=== PATIENT | female | born 1930 | race Caucasian/White ===

== ENCOUNTER → 2016-09-28 | Outpatient (CLI) | payer OTHER | LOC: MMPC 09:00 | PROVIDERS: ATTEND Family Medicine | DX: H54.52 Low vision, left eye, normal vision right eye (principal); H61.23 Impacted cerumen, bilateral; L91.8 Other hypertrophic disorders of the skin | CPT/HCPCS: 99213; G0463 ==

== ENCOUNTER → 2017-01-21 | Outpatient (CLI) | payer OTHER | LOC: MMPC 09:00 | PROVIDERS: ATTEND Family Medicine | DX: M54.2 Cervicalgia (principal); M54.5 Low back pain; M25.561 Pain in right knee; M25.562 Pain in left knee | CPT/HCPCS: 99214; G0463 ==

== ENCOUNTER → 2017-03-19 | Outpatient (CLI) | payer OTHER | LOC: MMPC 09:00 | PROVIDERS: ATTEND Family Medicine | DX: M54.2 Cervicalgia (principal); H61.23 Impacted cerumen, bilateral | CPT/HCPCS: 99213; G0463 ==

== ENCOUNTER 2018-06-10 09:40 | Inpatient (IN) ==
[2018-06-10] MEDS ORDERED: CloNIDine Tab 0.1 MG TABLET PO ONE (09:50)
--- NOTE | 2018-06-10 09:57 | PDOC ---
Neuro Symptoms / Deficit HPI - General Chief Complaint: Neurological Complaints Stated Complaint: POSSIBLE STROKE Date Seen by Provider: 06/10/18 Time Seen by Provider: 09:45 Source: POSITIVE: Patient, EMS Exam Limitations: POSITIVE: Clinical condition Nurse's Notes Reviewed & Considered: Yes - History of Present Illness Initial Comments: This is a well-developed, well-nourished, 88-year-old female, with stroke symptoms. Patient was brought in by EMS with right-sided facial droop, dysarthria, and aphasia. Patient states she went to bed at 10 PM last night normal, awoke at 03 100 with symptoms. She was found by staff to be sitting in the lobby of the home she lives and with the above noted symptoms. She was found to have blood pressure of 205/98 and a blood sugar of 87. She does not presently have blood pressure medication listed on her medical record. Due to the patient's dysarthria further review of systems is very difficult to obtain. Body Location Affected: REPORTS: Face Timing: REPORTS: Gradual Duration: <24 hours Severity: Severe Character of Deficit(s): REPORTS: Right, Facial, Impaired Speech, Impaired Swallowing Associated Symptoms: DENIES: Fever, Chills, Sweating, Chest Pain, Neck Pain, Back Pain, Headache, Fainting, Seizure, Altered Mental Status, Disoriented, Confused, Agitated, Trouble Concentrating, Trouble Thinking, Decreased Responsiveness, Unresponsive, Other Usual Ability to Walk/Stand: REPORTS: Walks w/o Assistance Usual Cognition: REPORTS: Alert & Oriented x3 Similar Symptoms Previously: No Recently seen/treated/hospitalized: No Any Prior Injuries Related to Current Complaint?: No - Patient Home Medications Home Medications: Home Medications Ascorbic Acid [Vitamin C] 500 mg PO DAILY 04/11/12 Aspirin 1 tab ORAL QD tab 04/11/12 B-Arrizhw-Aeydjnn B-12 1 ea PO DAILY 04/11/12 Ca Cmb No.1/Vit D3/B-6/FA/B12 [Vitamin D3 1,000 Unit Tablet] 1 ea PO DAILY 04/11 Calcium Carbonate/Vitamin D3 [Calcium 600 + Vit D Caplet] 1 ea PO DAILY Multivitamin [Daily Vitamin] 1 ea PO DAILY 04/11/12 Chlorel/Chloroph/D3/B2/FA/Iron [Chlorella Caps] 15 ea PO DAILY 04/18/12 [place] Q Plus 2 cap PO BID #90 cap 07/18/12 simvastatin 10 mg tablet 10 mg PO DAILY #90 tab 06/22/17 ropinirole 1 mg tablet 1 mg PO BID #60 tab 04/11/18 - Patient Allergies Allergies/Adverse Reactions: Allergies 3 Allergy/AdvReac Type Severity Reaction Status Date / Time Sulfa (Sulfonamide Allergy Intermediate RASH Verified 02/10/18 13:19 Antibiotics) [Sulfa(Sulfonamide Antibiotics)] Past Medical History - heen HEENT History: Hard of Hearing, Other (please comment) Additional HEENT History: PARTIAL UPPER PLATE Cardiovascular History: CAD, Hyperlipidemia Additional Cardiovasular History: CAROTID STENOSIS/ Respiratory History: Shortness of Breath, Sleep Apnea Gastrointestinal History: GERD, Peptic Ulcer Disease Genitourinary History: Denies History Endocrine History: Denies History Musculoskeletal History: Osteoporosis Neurological History: Denies History Blood Disorders: Denies History Psychiatric History: Denies History Cancer History: Denies History In Past Year Been Physically Harmed or Verbally Threatened: No History of MDRO: Unknown Tobacco Use: Unknown If Ever Smoked Alcohol Use: None In the Past 12 Months, Have Used or Abuse Any Substance: None ROS - Limitations ROS Limitations: Clinical Condition (Patient's dysarthria and aphasia make it difficult to obtain further review of systems.) Neuro Symptoms / Deficit Exam - General Appearance General Appearance: POSITIVE: Alert, Mild Distress, Anxious - HEENT HEENT: POSITIVE: Head Inspection Nml, Eyes Inspection Nml, Ears Inspection Nml, Nose Inspection Nml, Oral/Dental Inspect. Nml, Pharynx Inspect. Nml, PERRL, EOMI , Other (Right sided facial droop) - Pupil Size Pupil Size: 5 mm: Bilateral - Neuro / Psych Higher Functions: POSITIVE: Oriented to Person, Oriented to Place, Oriented to Time, Speech Abnormalities, Expressive Aphasia, Dysarthria, Other (Patient scores a 5 on the NIH stroke scale.) Cranial Nerves: POSITIVE: Dysarthria, Facial Palsy, Forehead Spared Cerebellar: POSITIVE: Normal As Tested Peripheral Exam: POSITIVE: Sensation Normal, Motor Normal, Reflexes Normal Reflexes: Patellar (R): 4+, Patellar (L): 4+, Radial (R): 4+, Radial (L): 4+ - Neck Neck: POSITIVE: Supple, Non-Tender - Respiratory Respiratory: POSITIVE: No Respiratory Distress, Breath Sounds Normal - Cardiovascular Cardiovascular: POSITIVE: Regular Rate & Rhythm, Heart Sounds Normal Peripheral Pulses: Radial (R): 4+ - Abdomen Abdomen: Soft: (All Quadrants), Normal Bowel Sounds: (All Quadrants), Denies Tenderness: (All Quadrants), No Splenomegaly: (All Quadrants), No Hepatomegaly: (All Quadrants), No Guarding: (All Quadrants), No Rebound: (All Quadrants), No Palpable Pulse: (All Quadrants), No Palpabale Mass: (All Quadrants), No Distention: (All Quadrants), No Rigidity: (All Quadrants) - Skin Skin: POSITIVE: Intact, Normal For Race, Warm, Dry, No Rash - Extremities Extremity: Non-Tender: (All Extremities), Normal ROM: (All Extremities), Normal Inspection: (All Extremities), Pelvis Stable: (All Extremities) Neuro Symptom/Deficit Progress - Results Reviewed by me Xrays/CTs/US Reviewed by me: Yes Discussed with Radiologist: Yes Lab Results Reviewed by Me: Yes CBC and BMP: 06/10/18 09:30 06/10/18 09:30 Lab Results:: Laboratory Results 3 06/10/18 06/10/18 06/10/18 09:30 09:30 09:30 WBC 9.66 RBC 4.98 Hgb 16.0 Hct 45.5 MCV 91.4 MCH 32.1 H MCHC 35.2 RDW Std Deviation 46.1 RDW Coeff of Jerardo 13.9 Plt Count 231 MPV 9.8 Immature Gran % (Auto) 0.2 Neut % (Auto) 66.0 Lymph % (Auto) 20.0 [place] % (Auto) 9.6 Eos % (Auto) 3.6 Baso % (Auto) 0.6 Immature Gran # (Auto) 0.02 Neut # (Auto) 6.37 Lymph # (Auto) 1.93 [place] # (Auto) 0.93 H Eos # (Auto) 0.35 Baso # (Auto) 0.06 WBC Morphology Comment Normal morphology Plt Morphology Comment Normal morphology RBC Morph Comment Normal morphology Sodium 139 Potassium 4.2 Chloride 109 Carbon Dioxide 24 Anion Gap 6 BUN 23 H Creatinine 0.8 BUN/Creatinine Ratio 28.75 H Glucose 108 Calculated Osmolality 292.0 Calcium 9.5 Magnesium 2.1 Total Bilirubin 0.5 AST 36 ALT 21 Alkaline Phosphatase 98 C-Reactive Protein 0.6 NT-Pro-B Natriuret Pep 440 Total Protein 7.9 Albumin 4.5 Globulin 3.4 Albumin/Globulin Ratio 1.30 TSH 2.44 Serum Alcohol < 10 EKG Interpreted/Reviewed By Me:: Yes EKG Interpretation:: POSITIVE: Normal Sinus Rhythm - Patient's Progress Pain Medication Addressed: POSITIVE: Not Applicable Status: POSITIVE: Unchanged MDM / ED Course: Patient was evaluated, an IV started, blood drawn and sent to the lab for studies, CT and MRI of her brain were obtained. Findings: CT scan shows no acute intracranial abnormalities. MRI shows CVA in Broca's L parietal region. CBC is normal. CMP shows a BUN of 23. CRP is 0.6. BNP is elevated at 440. TSH is 2.44. Blood alcohol is less than 10. Assessment: CVA with aphasia and dysarthria. Hypertension. Plan: Patient is being admitted. CVA/Syncope Quality Measure Initiative: POSITIVE: EKG, NIH Stroke Scale ( Patient scores a 5 on the NIH stroke scale) - Consult Consult (If Yes, Name of Consulting MD & Time Called): Yes (Dr. Bridges, Dr. Singleton 11:30 hrs.) Consulting MD will see pt:: POSITIVE: [facility] Admit Counseled: POSITIVE: Patient, Family, RE: Lab Results, RE: Radiology Results, RE : DX, RE: Need for F/U Patient Care Time - Estimated PCT Patient Care Time (In Minutes): 45 Vital Signs - Recent Vital Signs Vital Signs: Vital Signs (Last 8 hours) Temp Pulse Resp BP Pulse Ox 06/10/18 12:03 97.8 F 57 L 20 161/88 99 06/10/18 11:11 61 20 172/94 97 06/10/18 10:19 97.4 F 68 20 212/88 95 06/10/18 09:40 97.4 F 72 20 205/98 95 - VS Reviewed Vital Signs Reviewed: Yes Discharge Clinical Impression: Cerebrovascular accident Discharge Disposition: Admit to Inpatient Condition: Stable Date Decision to Admit to Inpatient: 06/10/18 Time Decision to Admit to Inpatient: 11:34
[2018-06-10 10:02] LABS: BASOPHILS # (AUTO) 0.06 10*3/UL; BASOPHILS % (AUTO) 0.6 % (0-1); EOSINOPHILS # (AUTO) 0.35 10*3/UL; EOSINOPHILS % (AUTO) 3.6 % (0-8); Hematocrit [HCT] 45.5 % (37.0-47.0); LYMPHOCYTES # (AUTO) 1.93 10*3/uL; MEAN CORPUSCULAR HEMOGLOBIN 32.1 PG (27-31); MEAN CORPUSCULAR HGB CONC 35.2 g/dL (33-37); MEAN CORPUSCULAR VOLUME 91.4 FL (81-99); MEAN PLATELET VOLUME 9.8 FL (7.4-12.2); MONOCYTES # (AUTO) 0.93 10*3/UL (0.3-0.8); MONOCYTES % (AUTO) 9.6 % (5-15); NEUTROPHILS # (AUTO) 6.37 10*3/UL; RED BLOOD COUNT 4.98 10^6/uL (4.20-5.40)
[2018-06-10 10:03] LABS: PLATELET MORPHOLOGY COMMENT NORMAL MORPHOLOGY (NORM); RBC MORPHOLOGY COMMENT NORMAL MORPHOLOGY (NORM); WBC MORPHOLOGY COMMENT NORMAL MORPHOLOGY (NORM)
[2018-06-10 10:11] LABS: BLOOD UREA NITROGEN 23 mg/dL (7-22); BUN/CREATININE RATIO 28.75 (6-20); SERUM ALBUMIN 4.5 g/dL (3.5-4.8)
--- NOTE | 2018-06-10 10:28 | DI ---
CT HEAD SCAN WITHOUT IV CONTRAST, 06/10/2018 9:50 AM : Clinical History: Stroke symptoms. Previous Exam: 04/11/2012. Scans are obtained from the foramen magnum to the vertex without IV contrast. The 4th, 3rd, and lateral ventricles are of normal size, shape, position, and contour for the patient 's age. There is no evidence of an acute hemorrhagic or bland infarct. There is an old lacunar infarc t of the left head of the caudate nucleus that has not changed since the previous exam. There are mul tiple punctate periventricular white matter lucencies bilaterally that extend into the watershed terr itory, consistent with small vessel ischemic disease. This amount of ischemic disease is appropriate for the patient's age. There is moderate cerebellar and cerebral atrophy. There are no extracerebral mantles or shift of the midline structures. Bone window evaluation is normal. The paranasal sinuses a re normal. READIN. There is no acute hemorrhagic or bland infarct. 2. Old lacunar infarct of the head of the left caudate nucleus. 3. Small vessel ischemic disease. 4. Moderate cerebellar and cerebral atrophy.
--- NOTE | 2018-06-10 11:15 | EKG ---
[address] [id number] Measurements Intervals [place] Rate: 62 P: 64 FL: 170 QRS: 24 QRSD: 85 T: 84 QT: 424 QTc: 428 Interpretive Statements SINUS RHYTHM NONSPECIFIC T WAVE CHANGES IN AVL No previous ECG available for comparison Electronically Signed On 06-10-18 17:24:16 MDT by Reuben Landrum [email or web address]
--- NOTE | 2018-06-10 11:27 | DI ---
MRI BRAIN SCAN WITHOUT IV CONTRAST, 06/10/2018 9:50 AM: Clinical History: Stroke symptoms. Previous Exam: None at this facility. Sequences: Sagittal T1; Axial MARILYN T2 and FLAIR. Axial diffusion weighted images with ADC mapping were also performed. The fourth ventricle is of normal size, shape, position and contour. The third and lateral ventricles are mildly dilated but are otherwise normal. There is hyperintensity with subtle mass effect involvi ng the left frontal lobe and with more subtle changes at the left hemisphere near the motor strip. Th gretel are better seen on the diffusion-weighted imaging sequences were they represent marked hyperinten se areas and these show corresponding hypointense areas on the ADC map indicating they represent acut e bland infarctions in the distribution of the middle cerebral artery. There is an old lacunar infarc t involving the left body of the caudate nucleus. There are other periventricular white matter hyperi ntensities that extend into the watershed territory consistent with small vessel ischemic disease garcia ropriate for the patient's age. There is moderate cerebellar and cerebral atrophy. There are no extra cerebral mantels or shift of the midline structures. The paranasal sinuses are normal. Readin. There are acute bland infarctions involving the left frontal lobe and the anterior portion of the left parietal lobe in the region corresponding to the motor strip. These would correspond to branche s of the MCA. 2. Old lacunar infarct of the body of the left caudate nucleus. 3. Small vessel ischemic disease. 4. Moderate cerebellar and cerebral atrophy.
[2018-06-10 12:36] LABS: BILIRUBIN,URINE NEGATIVE (NEG); CLARITY,URINE CLEAR (CLEAR); COLOR,URINE YELLOW (Y); GLUCOSE, URINE (UA) NEGATIVE (NEG); OCCULT BLOOD,URINE NEGATIVE (NEG); PROTEIN,URINE NEGATIVE (NEG); UROBILINOGEN,URINE 0.2 EU/dL (0.2)
[2018-06-10] MEDS ORDERED: LABETALOL 20 MG/4 ML (5 MG/1 ML) SYRINGE IVP PRN (12:37)
[2018-06-10] MEDS ORDERED: LIDOCAINE W/ SODIUM BICARB 0.5 ML SYR SUBD PRN (12:37)
[2018-06-10 12:43] LABS: BACTERIA,URINE MODERATE; RBC,URINE 0-1 /hpf; SQUAMOUS EPITHELIAL CELL,UR RARE; URINE SAMPLE TYPE CLEAN CATCH URINE
[2018-06-10 12:48] LABS: AMPHETAMINE SCREEN NEGATIVE (NEG); CANNABINOID SCREEN,URINE NEGATIVE (NEG); COCAINE SCREEN NEGATIVE (NEG); METHADONE URINE SCREEN NEGATIVE (NEG); METHAMPHETAMINES SCREEN,URINE NEGATIVE (NEG); OPIATE SCREEN,URINE NEGATIVE (NEG); URINE SPECIFIC GRAVITY - MAN 1.007
[2018-06-10] MEDS: Sodium Chloride 0.9% 1,000 ML PRIMARY IV SCH ×2 (14:20→20:44)
--- NOTE | 2018-06-10 15:34 | DI ---
MODIFIED ESOPHAGRAM, 06/10/2018 12:37 PM : Clinical History: Stroke with facial droop. Previous Exam: None at this facility. A "time out" session was performed to verify the patient's name and date of prior to initiating this procedure. This examination is performed in conjunction with Occupational Therapy to evaluate t he patient's swallowing function. Different texture grades of barium impregnated substances were offe red to the patient, ranging from thin liquids to thick liquids to solids. Please see the occupational therapist's report. Deglutition is normal and the limited views of the mid and distal esophagus strip well. With thin liq uids, some contrast is seen to enter the upper airway and coat the vocal cords, but no material actua lly entered into the trachea itself. There is slight pooling of material in the pyriform sinuses but this readily cleared when the patient swallowed a second time. There is no Zenker's diverticulum. Spo t films of the cervical esophagus show dilatation of the left side of the esophagus at the level of t he sternal notch without evidence of a diverticulum. This area contracts normally. Surgical clips are present bilaterally in the neck probably secondary to carotid artery surgery. READIN. With thin liquids, some contrast is seen to enter the upper airway and coat the vocal cords. The patient did not actually aspirate any of the liquid content. The patient was able to swallow other ba rium impregnated substances without problem. See the occupational therapist's report. 2. There is slight ectasia of the left side of the upper cervical esophagus but there is still darion l motility. There is no evidence of a diverticulum.
--- NOTE | 2018-06-10 16:53 | OTI REPORT ---
Thank you for the referral of Lou Ulloa. She was seen on 06/10/18 for an occupational therapy modified barium swallow study. SUBJECTIVE: The patient is an 88-year-old female. The patient had a CVA from which she has residual effects including right sided facial droop. Her articulation skills are fair. She is demonstrating drooling out of the right side of her mouth. She reports that she doesn't think she is having trouble with swallowing. Dr. Singleton did order a modified barium swallow study. PAST MEDICAL HISTORY: Past medical history can be found in the patient's medical record. OBJECTIVE FINDINGS: Today the patient sat in the fluoroscopy seat in a lateral view. We started with nectar thickened liquid for safety. The patient did not demonstrate aspiration with the nectar thickened liquid. We then went to thin liquid. The patient had pooling in the vocal cords and approximately 10% of the bolus transferred past the epiglottis into the trachea. She was demonstrating aspiration with thin liquid. We then went to nectar thickened liquid again and the patient did not demonstrate aspiration. We then sat her in an anterior view and went with mechanical soft peaches and ham. During swallowing the patient demonstrated decreased lip closure as she did have drooling of the barium outside of the right side of her mouth. She did demonstrate abnormal chewing which led to premature AP transit. AP transit took slightly longer. She does have some slight pocketing in the right sulcus of the mouth and premature spillage into the pharyngeal region. She had slight decreased tongue based retraction. She did demonstrate some stasis and coding mildly. The patient does have a good swallow trigger. She had mild piecemeal deglutition. She was negative for oral and nasal regurgitation. She had fair hyoid/thyroid approximation, hyoid protraction, and laryngeal elevation. With thin liquids, she demonstrated penetration and aspiration but was negative with mechanical soft, meat, and nectar thickened liquids. The patient does have a fair pharyngeal squeeze. She does have mild vallecular and piriformis pooling. With a double swallow she was able to clear the food. She did have some residual effects in both of these. UES opening appears to be within functional limits as well as the cricopharyngeal bar. She did not demonstrate esophageal/ pharyngeal reflux today. DYSFUNCTION: Decreased lip closure and seal Decreased cheek tone Decreased ability to chew Decreased tongue movement and tongue based retraction Decreased hyolaryngeal excursion Decreased ability to protect airway with thin liquids Decreased pharyngeal contracture IMPAIRED MUSCLE GROUPS: Intrinsics and extrinsics of the tongue Oral pharyngeal sling Hyolaryngeal excursion muscles Laryngeal intrinsics Pharyngeal constrictors ASSESSMENT: The patient would benefit from skilled occupational therapy to address swallow strengthening. She does demonstrate decreased hyolaryngeal excursion and pharyngeal strength. Her epiglottis is weak and she did demonstrate aspiration. RECOMMENDATIONS: 1. Patient should remain in an upright position during all food and liquid intake. 2. Patient is to be placed on nectar thickened liquids. 3. Patient is to be placed on mechanical soft diet. 4. Any mixed texture foods (vegetable soup, etc.) should be thickened to a nectar thickened consistency. 5. Medications should be crushed and placed in a puree. If they cannot be crushed, they should still remain in a puree such as applesauce. 6. Patient's mouth should be cleared after any oral intake as she does tend to pocket on the right side. 7. Pt. shoulder remain upright for 30 min. after each meal to decrease chance of aspirating. SWALLOW GOALS: Patient will be independent with swallow strengthening exercises in order to improve her abilities to swallow regular food textures and thin liquids. Patient will have 100% laryngeal elevation. Patient will demonstrate full tongue range of motion in all planes. Patient will follow safety precautions at all times. INITIAL TREATMENT: Treatment today consisted of the modified barium swallow study only. MTDD
--- NOTE | 2018-06-10 17:26 | DI ---
DUPLEX COLOR DOPPLER CAROTID ULTRASOUND, 06/10/2018 12:37 PM: Clinical History: Stroke. Previous Exam: None at this facility. Technique: 2D real time imaging is supplemented with duplex color doppler ultrasound imaging. RIGHT CAROTID ARTERY: 2D real time imaging of the right carotid system shows marked tortuosity of the proximal common carot id artery with a small calcified plaque. The tortuosity usually is associated with chronic hypertensi on. Small calcified plaques are present in the carotid bulb. Peak systolic velocities through the rig ht common carotid, the external carotid, and the internal carotid are 80 cm/s, 59 cm/s, and 56 cm/s, respectively. All values correspond to diameter stenoses of 0-49%. LEFT CAROTID ARTERY: 2D real time imaging of the left carotid system shows a normal appearance of the common carotid arter y and there is only a very small plaque in the carotid bulb. Peak systolic velocities through the lef t common carotid, the external carotid, and the internal carotid are 92 cm/s, 41 cm/s, and 49 cm/s, r espectively. All values correspond to diameter stenoses of 0-49%. VERTEBRAL ARTERIES: There is antegrade flow through both vertebral arteries Cardiac rhythm is regular. Peak systolic [place] through the visualized portions of the right and left vertebral arteries are 48 cm/s and 39 cm /s, respectively. Both values correspond to diameter stenoses of 0-49%. Readin. There is no hemodynamically significant stenosis of either carotid system. 2. There is antegrade flow through both vertebral arteries. Cardiac rhythm is regular.
[2018-06-10] MEDS ORDERED: CLOPIDOGREL 75 MG TABLET PO ONE (17:27)
--- NOTE | 2018-06-10 17:34 | PDOC ---
HPI - History of Present Illness Date of Service: 06/10/18 Time of Service: 17:28 Chief Complaint: Facial droop and slurred speech History of Present Illness: This is a very pleasant 88-year-old female with carotid artery disease, hypercholesterolemia, and waxing and waning hypertension issues. Past Medical History Medical History: 1. HTN. 2. carotid artery disease. 3. hypercholesterolemia Surgical History: 1. bilateral CEA. 2. incidental appendectomy. 3. tubo- ovarian removal. Pertinent Family History: significant for stroke in her mother at age 81 Past Social History: Does not smoke or drink alcohol. Lives here in [place] at [facility]. Has two sons. Tobacco Use: Unknown If Ever Smoked In the Past 12 Months, Have Used or Abuse Any of the Following Substance: None Alcohol Use: None Medication / Allergies Home Medications: Home Medications 3 Medication Instructions Recorded Confirmed Type Ascorbic Acid [Vitamin C] 500 mg PO DAILY 04/11/12 06/10/18 History Aspirin 1 tab ORAL QD tab 04/11/12 06/10/18 History P-Xcamkxt-Gzmpwyl B-12 1 ea PO DAILY 04/11/12 06/10/18 History Ca Cmb No.1/Vit D3/B-6/FA/B12 1 ea PO DAILY 04/11/12 06/10/18 History [Vitamin D3 1,000 Unit Tablet] Calcium Carbonate/Vitamin D3 1 ea PO DAILY 04/11/12 06/10/18 History [Calcium 600 + Vit D Caplet] Multivitamin [Daily Vitamin] 1 ea PO DAILY 04/11/12 06/10/18 History Chlorel/Chloroph/D3/B2/FA/Iron 15 ea PO DAILY 04/18/12 06/10/18 History [Chlorella Caps] [place] Q Plus 2 cap PO BID #90 cap 07/18/12 06/10/18 History simvastatin 10 mg tablet 10 mg PO DAILY #90 tab 06/22/17 06/10/18 Rx ropinirole 1 mg tablet 1 mg PO BID #60 tab 04/11/18 06/10/18 Clinic Allergies/Adverse Reactions: Allergies 3 Allergy/AdvReac Type Severity Reaction Status Date / Time Sulfa (Sulfonamide Allergy Intermediate RASH Verified 02/10/18 13:19 Antibiotics) [Sulfa(Sulfonamide Antibiotics)] Review of Systems - Review of Systems All Systems: Reviewed & No Additional Complaints Except as Stated (I did a 12 point review of systems and it was negative other than that discussed in history of present illness.) Exam - Vitals Vital Signs: Vital Signs Temperature 97.5 F Temperature Source Temporal Artery Scan Pulse Rate [Pulse Oximeter 64 Right] Pulse Rate 68 Respiratory Rate 18 Blood Pressure [Left Arm] 173/90 Blood Pressure 172/94 Pulse Ox 95 Oxygen Delivery Method Room Air Height 5 ft 4 in Weight 164 lb 6.4 oz - General General Appearance: No Acute Distress, Cooperative - Head Head Exam: Normal Inspection, Normocephalic, Atraumatic - Eye Eye Exam: POSITIVE: No Scleral Icterus - ENT ENT Exam: POSITIVE: Mucous Membranes Moist - Neck Neck Exam: Normal Inspection, No Tenderness, No Lymphadenopathy, No Thyromegaly , JVP is not Raised - Respiratory Respiratory Exam: POSITIVE: Clear to Auscultation - Bilaterally, Breathing Non Labored, Normal to Percussion and Palpation - Cardiovascular Cardiovascular Exam: POSITIVE: RRR, No Clicks, No Gallops, No Rubs, Systolic Murmur, No JVD - GI/Abdominal GI/Abdominal Exam: POSITIVE: Normal Bowel Sounds, Non Tender, Non Distended, Soft - Rectal Rectal Exam: POSITIVE: Deferred - External Exam: POSITIVE: Deferred Exam: POSITIVE: Deferred - Extremities Extremities Exam: POSITIVE: No Clubbing Present, No Edema Present, No Cyanosis Present - Back Back Exam: POSITIVE: No CVA Tenderness - Neurological Neurological Exam: POSITIVE: Alert, Oriented x 3, Moves All Extremities Equally Additional Neurological Exam Details: has facial droop speech is difficult to understand at times - Psychiatric Psychiatric Exam: POSITIVE: Normal Affect, Normal Mood Results - Labs CBC and BMP: 06/10/18 09:30 06/10/18 09:30 Additional Lab Results: Laboratory Results 06/10/18 06/10/18 06/10/18 Range/Units 09:30 09:30 09:30 WBC 9.66 (4.8-10.8) 10^3/uL RBC 4.98 (4.20-5.40) 10^6/uL Hgb 16.0 (12.0-16.0) g/dL Hct 45.5 (37.0-47.0) % MCV 91.4 (81-99) FL MCH 32.1 H (27-31) PG MCHC 35.2 (33-37) g/dL RDW Std Deviation 46.1 (39-50) fL RDW Coeff of Jerardo 13.9 (11.5-14.5) % Plt Count 231 (140-350) 10*3/uL MPV 9.8 (7.4-12.2) FL Immature Gran % (Auto) 0.2 (0-5) % Neut % (Auto) 66.0 (50-80) % Lymph % (Auto) 20.0 (10-50) % [facility] % (Auto) 9.6 (5-15) % Eos % (Auto) 3.6 (0-8) % Baso % (Auto) 0.6 (0-1) % Immature Gran # (Auto) 0.02 10*3/UL Neut # (Auto) 6.37 10*3/UL Lymph # (Auto) 1.93 10*3/uL [facility] # (Auto) 0.93 H (0.3-0.8) 10*3/UL Eos # (Auto) 0.35 10*3/UL Baso # (Auto) 0.06 10*3/UL WBC Morphology Comment Normal morphology (NORM) Plt Morphology Comment Normal morphology (NORM) RBC Morph Comment Normal morphology (NORM) Sodium 139 (135-145) meq/L Potassium 4.2 (3.8-5.2) meq/L Chloride 109 (98-112) meq/L Carbon Dioxide 24 (23-33) meq/L Anion Gap 6 (5-20) BUN 23 H (7-22) mg/dL Creatinine 0.8 (0.50-1.20) mg/dL BUN/Creatinine Ratio 28.75 H (6-20) Glucose 108 (78-110) mg/dL Calculated Osmolality 292.0 (267-292) mOsm/kg Calcium 9.5 (8.7-10.7) mg/dL Magnesium 2.1 (1.6-2.4) mg/dL Total Bilirubin 0.5 (0.3-1.2) mg/dL AST 36 (8-39) IU/L ALT 21 (9-52) IU/L Alkaline Phosphatase 98 (38-126) IU/L C-Reactive Protein 0.6 (0.0-0.9) mg/dL NT-Pro-B Natriuret Pep 440 (0-450) PG/ML Total Protein 7.9 (6.1-8.0) g/dL Albumin 4.5 (3.5-4.8) g/dL Globulin 3.4 (2.50-4.10) g/dL Albumin/Globulin Ratio 1.30 (1.3-2.0) mg/g TSH 2.44 (0.2700-4.2000) uIU/mL Ur Collection Type Urine Color (Y) Urine Clarity (CLEAR) Urine pH (5.0-8.5) Ur Specific Ola (1.005-1.030) U Specif Grav (Refrac) Urine Protein (NEG) mg/dl Urine Glucose (UA) (NEG) mg/dL Urine Ketones (NEG) Urine Occult Blood (NEG) Urine Nitrate (NEG) Urine Bilirubin (NEG) Urine Urobilinogen (0.2) EU/dL Ur Leukocyte Esterase (NEG) Urine RBC (NONE) /hpf Urine WBC (NONE) Ur Squamous Epith Cells (NONE) Ur Renal Epithelial Cell (NONE) Urine Crystals Urine Bacteria (NONE) Urine Casts (NONE) Urine Mucus (NONE) Urine Trichomonas (NONE) Urine Yeast (NONE) Ur Culture Indicated? Urine Opiates Screen (NEG) Ur Buprenorphine (NEG) Ur Oxycodone Screen (NEG) Urine Methadone Screen (NEG) Ur Propoxyphene Screen (NEG) Barbiturate Screen (NEG) U Tricyclic Antidepress (NEG) Phencyclidine Screen (NEG) Amphetamines Screen (NEG) U Methamphetamines Scrn (NEG) Benzodiazepines Screen (NEG) Cocaine Screen (NEG) U Marijuana (THC) Screen (NEG) Serum Alcohol < 10 (0-10) mg/dL 06/10/18 Range/Units 12:25 WBC (4.8-10.8) 10^3/uL RBC (4.20-5.40) 10^6/uL Hgb (12.0-16.0) g/dL Hct (37.0-47.0) % MCV (81-99) FL MCH (27-31) PG MCHC (33-37) g/dL RDW Std Deviation (39-50) fL RDW Coeff of Jerardo (11.5-14.5) % Plt Count (140-350) 10*3/uL MPV (7.4-12.2) FL Immature Gran % (Auto) (0-5) % Neut % (Auto) (50-80) % Lymph % (Auto) (10-50) % [facility] % (Auto) (5-15) % Eos % (Auto) (0-8) % Baso % (Auto) (0-1) % Immature Gran # (Auto) 10*3/UL Neut # (Auto) 10*3/UL Lymph # (Auto) 10*3/uL [facility] # (Auto) (0.3-0.8) 10*3/UL Eos # (Auto) 10*3/UL Baso # (Auto) 10*3/UL WBC Morphology Comment (NORM) Plt Morphology Comment (NORM) RBC Morph Comment (NORM) Sodium (135-145) meq/L Potassium (3.8-5.2) meq/L Chloride (98-112) meq/L Carbon Dioxide (23-33) meq/L Anion Gap (5-20) BUN (7-22) mg/dL Creatinine (0.50-1.20) mg/dL BUN/Creatinine Ratio (6-20) Glucose (78-110) mg/dL Calculated Osmolality (267-292) mOsm/kg Calcium (8.7-10.7) mg/dL Magnesium (1.6-2.4) mg/dL Total Bilirubin (0.3-1.2) mg/dL AST (8-39) IU/L ALT (9-52) IU/L Alkaline Phosphatase (38-126) IU/L C-Reactive Protein (0.0-0.9) mg/dL NT-Pro-B Natriuret Pep (0-450) PG/ML Total Protein (6.1-8.0) g/dL Albumin (3.5-4.8) g/dL Globulin (2.50-4.10) g/dL Albumin/Globulin Ratio (1.3-2.0) mg/g TSH (0.2700-4.2000) uIU/mL Ur Collection Type Clean catch urine Urine Color Yellow (Y) Urine Clarity Clear (CLEAR) Urine pH 7.0 (5.0-8.5) Ur Specific Ola 1.010 (1.005-1.030) U Specif Grav (Refrac) 1.007 Urine Protein Negative (NEG) mg/dl Urine Glucose (UA) Negative (NEG) mg/dL Urine Ketones Negative (NEG) Urine Occult Blood Negative (NEG) Urine Nitrate Negative (NEG) Urine Bilirubin Negative (NEG) Urine Urobilinogen 0.2 (0.2) EU/dL Ur Leukocyte Esterase Small (NEG) Urine RBC 0-1 (NONE) /hpf Urine WBC 3-5 (NONE) Ur Squamous Epith Cells Rare (NONE) Ur Renal Epithelial Cell None (NONE) Urine Crystals None Urine Bacteria Moderate H (NONE) Urine Casts None (NONE) Urine Mucus None (NONE) Urine Trichomonas None (NONE) Urine Yeast None (NONE) Ur Culture Indicated? Culture set Urine Opiates Screen Negative (NEG) Ur Buprenorphine Negative (NEG) Ur Oxycodone Screen Negative (NEG) Urine Methadone Screen Negative (NEG) Ur Propoxyphene Screen Negative (NEG) Barbiturate Screen Negative (NEG) U Tricyclic Antidepress Negative (NEG) Phencyclidine Screen Negative (NEG) Amphetamines Screen Negative (NEG) U Methamphetamines Scrn Negative (NEG) Benzodiazepines Screen Negative (NEG) Cocaine Screen Negative (NEG) U Marijuana (THC) Screen Negative (NEG) Serum Alcohol (0-10) mg/dL - EKG Data -: EKG Interpreted by Me Rate: Normal EKG Shows Normal: Sinus Rhythm - EKG Data EKG Interpretation: Other (t-wave inversion in aVL) - Imaging Status: Image Reviewed by Me (CT head without evidence of bleed on my view.) Assessment and Plan - Patient Problems (1) Cerebrovascular accident Current Visit: Yes Status: Acute Code(s): I63.9 - Cerebral infarction, unspecified (2) Hypertension Current Visit: Yes Status: Acute Code(s): I10 - Essential (primary) hypertension Qualifiers: Hypertension type: essential hypertension Qualified Code(s): I10 - Essential (primary) hypertension (3) Aortic stenosis Current Visit: Yes Status: Chronic Code(s): I35.0 - Nonrheumatic aortic ( valve) stenosis Qualifiers: Cardiac valve disease etiology: etiology unspecified Qualified Code(s): I35.0 - Nonrheumatic aortic (valve) stenosis (4) Restless legs Current Visit: Yes Status: Chronic Onset Date: 04/18/12 Code(s): G25.81 - Restless legs syndrome (5) Hyperlipidemia Current Visit: Yes Status: Acute Onset Date: 07/18/12 Code(s): E78.5 - Hyperlipidemia, unspecified Qualifiers: Hyperlipidemia type: unspecified Qualified Code(s): E78.5 - Hyperlipidemia , unspecified (6) Heart murmur Current Visit: Yes Status: Chronic Onset Date: 04/13/13 Code(s): R01.1 - Cardiac murmur, unspecified - Assessment / Plan Additional Assessment/Plan Details: admit PT and OT high dose statin plavix swallow evaluation/mechanical soft and thickened liquids will get CTA of head and neck (I think this was in-situ CVA) permissive hypertension DVT prophylaxis DO NOT RESUSCITATE
[2018-06-10] MEDS: Ropinirole Tab 1 MG TAB PO SCH (20:43)
[2018-06-10] MEDS: ASPIRIN 325 MG TABLET PO SCH (20:43)
[2018-06-11] MEDS: Sodium Chloride 0.9% 1,000 ML PRIMARY IV SCH ×2 (03:57→13:35)
[2018-06-11 05:00] LABS: CHOL/HDL RATIO 2.49 RATIO (0-4.0)
[2018-06-11] MEDS ORDERED: ASPIRIN 325 MG TABLET PO SCH (09:00)
[2018-06-11] MEDS ORDERED: [UNRECOGNIZED DRUG - REMARK] PO SCH (09:00)
[2018-06-11] MEDS ORDERED: [UNRECOGNIZED DRUG - OTHER] PO SCH (09:00)
[2018-06-11] MEDS ORDERED: [UNRECOGNIZED DRUG - MIXTURE] PO SCH (09:00)
[2018-06-11] MEDS: Multivitamin Tab 1 TAB PO SCH (09:47)
[2018-06-11] MEDS: ATORVASTATIN 40 MG TABLET PO SCH (09:47)
[2018-06-11] MEDS: Ropinirole Tab 1 MG TAB PO SCH ×2 (09:47→20:49)
[2018-06-11] MEDS: CLOPIDOGREL 75 MG TABLET PO SCH (09:47)
[2018-06-11] MEDS: ASCORBIC ACID Chewable 500 MG TABLET PO SCH (09:47)
[2018-06-11] MEDS: ENOXAPARIN SODIUM 30 MG/0.3 ML SYRINGE SUBCUT SCH (09:47)
--- NOTE | 2018-06-11 10:00 | DI ---
CT Angiogram of the Neck INDICATION: Stroke COMPARISON: None TECHNIQUE: Multiple contiguous axial images were obtained from the aortic arch through the posterior fossa before and following the administration of IV contrast. Multiplanar maximal intensity projection and 3-D reformatted images were generated. FINDINGS: The aortic arch and proximal great vessels are unremarkable. Status post bilateral carotid endarterectomy. The bilateral common, internal and external carotid arteries are within normal limits as are the vertebral arteries. No dissection. Visualized portions of the lung apices are clear. Degenerative changes of the cervical spine characterized by anterior osteophytosis and severe disc height loss. Pannus formation seen at the atlantodental interval with erosions. Otherwise, the soft tissues and osseous structures are unremarkable. IMPRESSION: Status post bilateral carotid endarterectomy. No evidence of dissection or high grade stenosis.
--- NOTE | 2018-06-11 11:32 | DI ---
INDICATION: Stroke TECHNIQUE: Multiple, contiguous 2.5 mm axial cuts of the brain are obtained from the posterior fossa to the cranial vault before and after the administration of IV contrast. Sagittal and coronal reformatted images provided. COMPARISON: None FINDINGS: Bilateral vertebral arteries are normal in size, course and caliber. The basilar artery is normal in size course and caliber. Bilateral posterior cerebral arteries are normal in size, course and caliber. Bilateral internal carotid arteries are normal in size, course and caliber. There is calcified plaque seen in bilateral cavernous segments of the internal carotid arteries. Bilateral anterior and middle cerebral arteries are normal in size, course and caliber. No aneurysm or vascular malformation. The osseous structures are unremarkable. The visualized portions of the paranasal sinuses are clear. IMPRESSION: No hemodynamically significant stenosis. No aneurysm or vascular malformation.
--- NOTE | 2018-06-11 12:53 | OT.PROG ---
Progress Note Progress Note: Occupational Therapy S: Pt. reports she is feeling ok today. She agrees to participate in therapy session. O: Pt. demonstrated the ability to complete bed mobility tasks with SBA and pt. completed a functional transfer X 10 with CGA. Pt. was then transported to therapy department where she completed facial strengthening exercises with vital stim X 25 min. Pt. also completed a MS Aphasia screening test. Screening results indicate that pt. scored a 48/50 for receptive language and a 45/50 for expressive language. Pt. then completed 8 min. on the nu step upon her request. Following OT session pt. was returned to her room with call light and alarms in place. Therapy received orders for a ROHO cushion and pt. was issued a cushion. A: Pt. is difficult to understand at times, however does much better when she slows down to communicate. Pt. fatigued quickly but tolerated the treatment session well overall. P: Continue POC. REUBEN Orta/Blu
--- NOTE | 2018-06-11 15:01 | PDOC(PROG) ---
Date of Service: 06/11/18 Time of Service: 14:51 Interval History: Patient seen and examined earlier. No chest pain, shortness breath, nausea or vomiting. Speech is about the same. Patient feels like she occasionally has some swallowing issues, but is working hard on that. Objective : Data - Labs CBC and BMP: 06/10/18 09:30 06/10/18 09:30 Additional Lab Results: 06/11/18 04:10 Triglycerides 80 Cholesterol 137 LDL Cholesterol, Calc 66.000 VLDL Cholesterol 16 HDL Cholesterol 55 Cholesterol/HDL Ratio 2.49 Objective : Exam - General General Appearance: No Acute Distress, Cooperative Additional General Exam Details: Vital Signs - Last Taken Temperature 97.6 F 06/11/18 13:00 Pulse Rate 69 06/11/18 13:00 Respiratory Rate 20 06/11/18 13:00 Blood Pressure 168/79 06/11/18 13:00 Pulse Ox 94 06/11/18 13:00 - Head Head Exam: Normal Inspection, Normocephalic, Atraumatic - Eye Eye Exam: No Scleral Icterus - ENT ENT Exam: Mucous Membranes Moist - Respiratory Respiratory Exam: Clear to Auscultation - Bilaterally, Breathing Non Labored - Cardiovascular Cardiovascular Exam: RRR, No Clicks, No Gallops, No Rubs, Systolic Murmur, No JVD - GI/Abdominal GI/Abdominal Exam: Normal Bowel Sounds, Non Tender, Non Distended, Soft - Extremities Extremities Exam: No Clubbing Present, No Edema Present, No Cyanosis Present - Neurological Neurological Exam: Alert, Oriented x 3, Normal Gait, Moves All Extremities Equally Additional Neurological Exam Details: Facial droop persists although slightly improved today. Speech is more understandable with the patient's slowing down to talk, garbled to some degree but understandable again particularly when the patient slows down. Assessment and Plan - Patient Problems (1) Cerebrovascular accident Current Visit: Yes Status: Acute Code(s): I63.9 - Cerebral infarction, unspecified (2) Hypertension Current Visit: Yes Status: Acute Code(s): I10 - Essential (primary) hypertension Qualifiers: Hypertension type: essential hypertension Qualified Code(s): I10 - Essential (primary) hypertension (3) Aortic stenosis Current Visit: Yes Status: Chronic Code(s): I35.0 - Nonrheumatic aortic ( valve) stenosis Qualifiers: Cardiac valve disease etiology: etiology unspecified Qualified Code(s): I35.0 - Nonrheumatic aortic (valve) stenosis (4) Restless legs Current Visit: Yes Status: Chronic Onset Date: 04/18/12 Code(s): G25.81 - Restless legs syndrome (5) Hyperlipidemia Current Visit: Yes Status: Acute Onset Date: 07/18/12 Code(s): E78.5 - Hyperlipidemia, unspecified Qualifiers: Hyperlipidemia type: unspecified Qualified Code(s): E78.5 - Hyperlipidemia , unspecified (6) Heart murmur Current Visit: Yes Status: Chronic Onset Date: 04/13/13 Code(s): R01.1 - Cardiac murmur, unspecified - Assessment / Plan Additional Assessment/Plan Details: Thus far, no evidence of carotid artery disease, no evidence of atrial fibrillation with telemetry monitoring, and we are waiting on echocardiogram results but it was done on Wednesday. 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 Permissive hypertension through today and tomorrow will start on blood pressure pills PT and OT. DVT prophylaxis. I spoke with the patient's son, Horace, who is an occupational therapist. I gave him some numbers as he's thinking about having his mom go to [place] for some speech therapy with the speech pathologist.
[2018-06-11] MEDS: ASPIRIN 325 MG TABLET PO SCH (20:49)
[2018-06-12] MEDS: ATORVASTATIN 40 MG TABLET PO SCH (09:20)
[2018-06-12] MEDS: Ropinirole Tab 1 MG TAB PO SCH ×3 (09:20→21:04)
[2018-06-12] MEDS: CLOPIDOGREL 75 MG TABLET PO SCH (09:20)
[2018-06-12] MEDS: ASCORBIC ACID Chewable 500 MG TABLET PO SCH (09:20)
[2018-06-12] MEDS: Multivitamin Tab 1 TAB PO SCH (09:20)
[2018-06-12] MEDS: ENOXAPARIN SODIUM 30 MG/0.3 ML SYRINGE SUBCUT SCH (09:21)
[2018-06-12] MEDS ORDERED: ENALAPRIL 10 MG TABLET PO ONE (11:00)
--- NOTE | 2018-06-12 11:04 | PT.PROG ---
Progress Note Progress Note: S. Patient stated she would like to go to the therapy gym. O. Patient ambulated 20 feet to the wheelchair and was wheeled to the therapy gym where she used the nu-step x 10 minutes, then performed seated exercises in the form of; long arc quads, marches, heel toe raises, resisted knee flexion, clam shells, ball squeezes all x10 with red thera band and no weight, patient performed upper extremity exercises in the form of; bicep/tricep curls, shoulder flexion/extension, horizontal abduction, rows, all x 10 with red thera band, sit to stands x 10. Patient then ambulated 60 feet to the wheelchair and was returned to her room where she ambulated 20 feet into the room and was left in bed with alarm and call light. (OT to come in later today for speech and facial therapy.) A. Patient tolerated therapy well this morning, she was able to perform all exercises with no pain or problems, patient was able to perform transfers and ambulation with Stand by guard assist. She would continue to benefit from skilled therapy for strength and mobility along with speech and facial strengthening. P. Continue POC.
--- NOTE | 2018-06-12 12:52 | PDOC(PROG) ---
Date of Service: 06/12/18 Time of Service: 12:49 Interval History: No completes of chest pain, shortness breath, nausea or vomiting. Speech sounds a little better today. No chest pain. Less facial droop today. Strength on right and left side is equal. Objective : Data - Labs CBC and BMP: 06/10/18 09:30 06/10/18 09:30 Objective : Exam - General General Appearance: No Acute Distress, Cooperative Additional General Exam Details: Vital Signs (24 hrs) Temp Pulse Pulse Pulse Resp BP Pulse Ox 06/12/18 12:24 91 06/12/18 11:19 98 F 66 18 183/84 95 06/12/18 09:48 54 L 54 L 06/12/18 07:00 54 L 54 L 70 06/12/18 06:40 97.8 F 58 L 17 142/93 95 06/12/18 05:10 96 06/12/18 05:00 96.5 F L 57 L 57 L 157/73 96 06/12/18 04:27 96.5 F L 57 L 57 L 15 157/73 96 06/12/18 03:20 57 L 57 L 57 L 06/12/18 01:00 98.2 F 60 60 14 92 06/11/18 23:35 60 60 60 06/11/18 22:36 62 63 14 151/79 92 06/11/18 21:00 98.2 F 72 72 20 181/84 06/11/18 19:00 97.6 F 66 72 72 14 170/80 94 06/11/18 16:17 98.2 F 66 20 181/84 93 06/11/18 15:00 60 06/11/18 13:00 97.6 F 69 20 168/79 94 - Head Head Exam: Normal Inspection, Normocephalic, Atraumatic - Eye Eye Exam: No Scleral Icterus - ENT ENT Exam: Mucous Membranes Moist - Respiratory Respiratory Exam: Clear to Auscultation - Bilaterally, Breathing Non Labored - Cardiovascular Cardiovascular Exam: RRR, No Clicks, No Gallops, No Rubs, Systolic Murmur - GI/Abdominal GI/Abdominal Exam: Normal Bowel Sounds, Non Tender, Non Distended, Soft - Extremities Extremities Exam: No Clubbing Present, No Edema Present, No Cyanosis Present - Neurological Neurological Exam: Alert, Oriented x 3, Moves All Extremities Equally Additional Neurological Exam Details: Speech is improving in terms of its clarity, facial droop has improved, but still persists on the right side. Has good and normal peripheral vision and extraocular muscles are intact on exam. - Psychiatric Psychiatric Exam: Normal Affect, Normal Mood Assessment and Plan - Patient Problems (1) Cerebrovascular accident Current Visit: Yes Status: Acute Code(s): I63.9 - Cerebral infarction, unspecified (2) Hypertension Current Visit: Yes Status: Acute Code(s): I10 - Essential (primary) hypertension Qualifiers: Hypertension type: essential hypertension Qualified Code(s): I10 - Essential (primary) hypertension (3) Aortic stenosis Current Visit: Yes Status: Chronic Code(s): I35.0 - Nonrheumatic aortic ( valve) stenosis Qualifiers: Cardiac valve disease etiology: etiology unspecified Qualified Code(s): I35.0 - Nonrheumatic aortic (valve) stenosis (4) Restless legs Current Visit: Yes Status: Chronic Onset Date: 04/18/12 Code(s): G25.81 - Restless legs syndrome (5) Hyperlipidemia Current Visit: Yes Status: Acute Onset Date: 07/18/12 Code(s): E78.5 - Hyperlipidemia, unspecified Qualifiers: Hyperlipidemia type: unspecified Qualified Code(s): E78.5 - Hyperlipidemia , unspecified (6) Heart murmur Current Visit: Yes Status: Chronic Onset Date: 04/13/13 Code(s): R01.1 - Cardiac murmur, unspecified - Assessment / Plan Additional Assessment/Plan Details: I will go ahead and redirect case management to look at possible [facility] placement per the patient and family's wishes. Her son is an occupational therapist and really like speech therapy at a minimum on an outpatient basis. I don't know if she'll have enough therapy to qualify her for an inpatient stay, but will have her evaluated to find out. Start enalapril today. Continue statin therapy. Continue Plavix. Continue PT and OT. DVT prophylaxis. Anticipate discharge in the next 24-48 hours depending on rehabilitation evaluation and possible outpatient therapy plans.
[2018-06-12] MEDS: ASPIRIN 325 MG TABLET PO SCH ×2 (19:47→21:03)
[2018-06-13] MEDS: CLOPIDOGREL 75 MG TABLET PO SCH (08:34)
[2018-06-13] MEDS: Multivitamin Tab 1 TAB PO SCH (08:34)
[2018-06-13] MEDS: ASCORBIC ACID Chewable 500 MG TABLET PO SCH (08:34)
[2018-06-13] MEDS: ATORVASTATIN 40 MG TABLET PO SCH (08:34)
[2018-06-13] MEDS: Ropinirole Tab 1 MG TAB PO SCH (08:34)
[2018-06-13] MEDS: ENOXAPARIN SODIUM 30 MG/0.3 ML SYRINGE SUBCUT SCH (08:35)
[2018-06-13] MEDS ORDERED: ENALAPRIL 10 MG TABLET PO SCH (09:00)
--- NOTE | 2018-06-13 09:18 | PTI REPORT ---
Thank you for the referral of Amarilis Ulloa. She was seen on 06/10/18 for an inpatient evaluation secondary to a CVA. SUBJECTIVE: The patient is an 88-year-old female who was at her apartment complex earlier today when she sustained a CVA. The patient is having a difficult time articulating secondary to the CVA. She does have a friend that is in the room with her who did provide some of the subjective information. The patient's CVA happened earlier this morning and she was brought into the hospital. The patient has undergone testing and has just recently gotten back from a modified barium swallow study. The patient states she is feeling pretty good. 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 Prior to her CVA, the patient was living independently at the [facility]. The patient was independent with her ADLs and was able to get around with 1-2 walking sticks. 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 PAST MEDICAL HISTORY: Past medical history can be found in the patient's medical record. OBJECTIVE FINDINGS: General observations: The patient was alert and oriented to setting upon PT arrival. The patient was in bed with the head of the bed elevated. The patient had a difficult time articulating when asked questions from therapy. The patient did become easily frustrated with the dysphasia she was having. The patient was able to have better articulation when she slowed down and really focused on each word that she was saying. The patient did have a noticeable facial droop from her CVA. Range of motion: The patient was able to perform active range of motion of her bilateral upper extremities within functional limits and equal bilaterally. Range of motion of bilateral lower extremities was within functional limits. Bed mobility: The patient was able to move from a supine to seated edge of bed position with stand by assist x1 for safety. The patient demonstrated good seated edge of bed balance. The patient was able to go from a seated to supine position independently. The patient did require verbal cues in order to perform a bridge to scoot up in the bed, but was able to do so just with the verbal cueing. Strength: The therapist was able to perform a manual muscle test in a seated position. The patient demonstrated 4/5 bilateral lower extremity strength. Transfers: The patient was able to transfer from seated edge of bed to standing position with contact guard assist x1 for safety. The patient demonstrated fair initial standing balance and was able to stand x1 minute without any difficulties with contact guard assist x1 for safety. The patient did not require any hand hold assist with standing. The patient was able to transfer from standing to sitting edge of bed with stand by assist x1 for safety. Ambulation: The patient was cued to take lateral steps to the left x2. The patient did require max cueing and did have some delayed processing to complete the side stepping. The patient was able to execute side stepping following being able to process the command. Pain: The patient denied any pain with manual muscle testing or transfer. ASSESSMENT: The patient has fair rehab potential secondary to her age and past medical history. Problem List: Generalized weakness/decreased endurance Right knee pain Short-Term Goals: To be met by discharge from inpatient: Patient will be able to transfer from bed to stand safely and independently. Patient will be able to ambulate at least 150 feet with the use of one walking stick safely and independently. Patient will be able to perform at least one flight of stairs with walking stick safely and independently. Long-Term Goals: To be met following discharge from inpatient: Patient will attend outpatient physical therapy if deemed necessary upon time of discharge. TREATMENT PLAN: Patient will be seen B.I.D during the week and one time per day over the weekend as an inpatient to address the above goals and objectives. INITIAL TREATMENT: Treatment today consisted of the initial evaluation activities only. Following treatment the patient was left in bed as radiology was in the patient's room to follow up on more imaging. DEE DEE
--- NOTE | 2018-06-13 09:50 | OTI REPORT ---
Thank you for the referral of Amarilis Ulloa. She was seen on 06/10/18 for an occupational therapy inpatient evaluation status post CVA. SUBJECTIVE: The patient is an 88-year-old female who is being seen secondary to having a stroke which affected her right facial area. Prior to admission the patient lived in an apartment by herself. She was independent with all of her ADLs, functional tasks, and driving. The patient did all of her grocery shopping. She did have some help from family for some cleaning once in a while, but overall the patient did well for herself. PAST MEDICAL HISTORY: Past medical history can be found in the patient's medical record. OBJECTIVE FINDINGS: Transfers: The patient was able to complete functional stand pivot transfers with contact guard assist. Range of motion: Upper extremity active range of motion was within functional limits. The patient was able to oppose all of her fingers to her thumb bilaterally. Strength: Strength for shoulder flexion was 4/5, shoulder extension was 4+/5, shoulder abduction was 4/5 on the left and 3+/5 on the right, external rotation was 4/5 on the left and 3+/5 on the right, elbow flexion/extension bilaterally was 4+/5, and wrist flexion/extension was 4+/5. Activities of daily living: The patient was able to don and doff her socks with contact guard assist while sitting edge of bed. Oral motor function: The patient was missing 90% of lateralization. She had facial droop with opening 50% of the time. She had 50% strength when squeezing lips together and puckering lips. The patient demonstrated 25% loss of levator nasi. There was a noticeable facial droop on the right side in comparison to the left. Tongue range of motion was within normal limits on the left side and in the sulci of the mouth. She has mild difficulties getting in the right sulci of the mouth and is demonstrating oral motor drooling. The patient is having difficulty articulating words that take the tip of her tongue, such as "ladder" and words that use the base of her tongue. The patient appears to be doing well with her receptiveness of speech. She is trying her best to express herself, but because of her oral motor skills and weakness of the right facial muscles she is having difficulty articulating her words. ASSESSMENT: The patient would benefit from skilled occupational therapy to mainly address her oral motor dysfunction and weakness. We will also work on swallow strengthening, ADLs, upper extremity strength, and fine motor coordination. Even though the patient's upper extremity strength and fine motor abilities are close to baseline, she still has slight weakness on the right side compared to the left. We will work on articulation and oral motor strength in order to improve her ability to eat, manipulate food in her mouth, and to be able to engage in conversation without difficulty. Short-Term Goals: To be met by discharge from inpatient: Patient will be able to complete 2-3 sentences without articulation difficulties to engage in conversation 100% of the time. Patient will demonstrate 75% of all active range of motion of mouth movements such as lateralization, opening/closing, and puckering. Patient will be able to produce word sounds that take tip of tongue and base of tongue in order to articulate in conversation x5 minutes with 90% accuracy. Patient will increase upper extremity strength to 4/5 in her right upper extremity and will be able to complete all fine motor manipulation tasks independently. Long-Term Goals: To be met following discharge from inpatient: Patient will return home, demonstrating safety and independence with all functional activities including feeding and swallowing. TREATMENT PLAN: Patient will be seen B.I.D during the week and one time per day over the weekend as an inpatient to address the above goals and objectives. INITIAL TREATMENT: Treatment today consisted of the initial evaluation followed by the patient completing oral motor exercises including lateralization x10, opening and closing of the mouth, lip squeezes, and levator nasi elevation. We did neurological testing with eyes closed, touching finger to nose. The patient was able to do this without difficulty. DEE DEE
--- NOTE | 2018-06-13 10:04 | OT PM DAY ---
Diagnosis : CVA PM - Occupational Therapy S: The patient reports she is willing to come down and do vital-stim therapy and work on her speech. O: Today the patient had to use the restroom before we began. She was able to get out of bed with contact guard assist. While sitting edge of bed, the patient required contact guard assist to transfer from sit to stand. She was able to transfer to the bathroom with contact guard assist. She was able to turn around, doff shorts, and complete toilet hygiene independently. She walked to the sink with contact guard assist and completed hygiene activities at the sink with min assist. Once down in therapy the patient completed vital- stim electrodes on the left and right cheeks for oral motor strength. With this , the patient completed lateralization x25, opening and closing mouth with a lot of emphasis on end range, puckering, and smiling. Today the patient had 50 % of total movement of the smile, 25% of total movement of lateralization, and 100% of total movement for puckering lips. The patient was able to squeeze lips today. We did work on eating abilities. Vital-stim was placed in the 3A position and the patient was able to average 7 milliamps of electrical current while completing effortful swallows and Corrine maneuvers. The patient did well with her effortful swallows; however, she had difficulty with the Corrine maneuver. We also worked on articulation skills. The patient was able to say the word "purple" with emphasis on syllables. We really emphasized the CH sound. She had difficulty with S's today. We had her place words in a sentence and repeat them 5 times, trying to emphasize areas she was struggling with. The patient had vital-stim on for 45 minutes while completing swallowing exercises, oral motor exercises, and articulation exercises. The patient was educated to continue with swallow strengthening exercises including effortful swallows during all meals. She was instructed to emphasize and articulate syllables with words. She was given a list of words and asked to repeat them x5 each in her room. She was instructed to emphasize articulation during conversations with any guests and with nurses. She was instructed to complete oral motor exercises on her own. The patient was then taken back to her room. She completed a wheelchair to bed transfer with contact guard assist. She was independent with bed mobility. Nursing was notified of the patient's results today. A: The patient was a very good participant today. She did very well in the therapy session. She has had about 50% improvement in comparison to Wednesday with her oral motor abilities. Her articulation is slightly better, but we still have some work to complete in order for her to be more understandable to others. Her swallowing seems to have improved as well. P: Continue seeing patient BID during the week and one time per day over the weekend until discharge. ILSAD
[2018-06-13 11:18] VITALS: BP 118/63; RESP 18; TEMP 97.8
--- NOTE | 2018-06-13 11:53 | OT.PROG ---
Progress Note Progress Note: S: pt stated she wanted to go home soon and was ready for therapy. O: pt completed bed mobility from supine to EOB, toilet transfers, toileting tasks and hygiene, ADLS at sink of combing hair, brushing teeth and washing hands independently with CGA only for safety. pt completed dressing tasks independently and donning of shoes independently. pt used walking stick for minimal stability when bending over to pick items up off the floor and when walking. Vitalstim was set up on pt by Delaney CUNNINGHMA. Vitalstim was placed on pts Buccal and pharyngeal muscles x50 min while completing oral motor exercises and swallowing exercises of effortful swallows and monsacco swallows. pt had mild difficulties with her pronunciation while completing exercises. pt final levels on vitalstim was R buccal -8, L buccal-4.5, pharyngeal -10.5. A: pt was tired after oral motor exercises but was willing to complete PT exercises. P: continue POC
[2018-06-13 12:13] VITALS: O2SAT 93
--- NOTE | 2018-06-13 12:37 | PT.PROG ---
Progress Note Progress Note: S. Patient stated that she is feeling good this morning. O. Patient ambulated 175 feet to the therapy gym where she performed balance grid x 3, sit to stands with 2# ball x 10, #2 box step ups x 10, nu-step x 10 minutes, hurdles x 3 laps, Patient ambulated 175 feet back to her room where she was left in bed with alarm and call light. A. Patient tolerated therapy well this morning, she was able to perform all activities with no increased pain or problems. Patient would continue to benefit from skilled therapy to increases strength, endurance and safety along with speech therapy. P. Continue POC.
--- NOTE | 2018-06-13 13:55 | DCSUMMARY ---
Hospitalization Summary Hospital Course: Final Discharge Diagnosis: Current Visit Problems Problem Status Onset Code Cerebrovascular accident Acute I63.9 Hypertension Acute I10 Aortic stenosis Chronic I35.0 Restless legs Chronic 04/18/12 G25.81 Hyperlipidemia Acute 07/18/12 E78.5 Heart murmur Chronic 04/13/13 R01.1 Diagnostic Data, Laboratory Data, and Procedures of Signifigance: History and Physical pertinent to Admission: Course of Hospitalization: Is a very nice 88-year-old female who was admitted with a diagnosis of CVA as seen on MRI and slurred speech and facial droop. She has a history of carotid endarterectomies bilaterally. And has been on aspirin for quite some time. I discussed the case with the patient Delaney Mims occupational therapy and Dr. Aubrie Mims as stated that she is doing pretty well with her physical therapy and is stable enough to be discharged home the patient wants to continue to see Delaney for her speech therapy she will see her daily her friend is at the bedside will take her every day and go and pick her up since it was recommended that the patient not drive at this point until she has to OK from Delaney. The patient also states that the her son initially wanted her to receive aggressive speech therapy but is now okay with the Delaney doing the speech therapy and these are her wishes. She is able to express herself and is coherent. I did talk to call her son updated him of the situation and told him that the patient was going to be going home. He is very happy with her care and also we talked to Delaney I also told them that the patient was advised not to drive and she has agreed On the date of discharge, the patient was examined: Gen.: No acute distress, alert, nontoxic Heart: Regular rate and rhythm, no murmurs, clicks, gallops, or rubs Lungs: Clear to auscultation bilaterally, breathing is nonlabored Abdomen/GI: Normal tones on auscultation, soft, nontender, nondistended Musculoskeletal/extremities: No clubbing, cyanosis, or edema Vitals reviewed and are listed below Vital Signs (24 hrs) Temp Pulse Pulse Resp BP BP Pulse Ox 06/13/18 12:00 93 06/13/18 11:17 97.8 F 69 18 118/63 94 06/13/18 07:00 66 06/13/18 06:34 97 F 66 19 113/68 97 06/13/18 05:00 63 18 111/74 99 06/12/18 20:36 70 22 153/80 100 06/12/18 19:00 70 06/12/18 16:06 97.8 F 64 19 180/86 100 06/12/18 15:00 58 L 58 L Assessment and Plan: 1. As per discharge assessments above 2. Disposition: Home she will do fit speech therapy and occupational therapy daily with Delaney 3. Condition on discharge, stable and improved. 4. Diet: regular diet 5. Activities: resume normal activities 6. Follow-Up: 1. PCP 2. 7. Medications at the Time of Discharge: 8. Time, care, counseling and coordination of care for this discharge is greater than 30 minutes. Exam - Vitals Vital Signs: Vital Signs Temperature 97.8 F Temperature Source Temporal Artery Scan Pulse Rate [Apical] 54 Pulse Rate [Pulse Oximeter 69 Right] Pulse Rate 58 Respiratory Rate 18 Blood Pressure [Right Arm] 118/63 Blood Pressure [Left Arm] 111/74 Blood Pressure 172/94 Pulse Ox 93 Oxygen Flow Rate 2 Oxygen Delivery Method Room Air Height 5 ft 4 in Weight 166 lb 6.4 oz
--- NOTE | 2018-06-14 11:57 | OT PM DAY ---
Diagnosis : CBA PM - Occupational Therapy S: Patient reports that she feels like she is wanting to go home her friend was present during the session today. She reports that she would like to come in for outpatient therapy to work on her speech and oral motor weakness. O: Patient was educated in how to thicken her liquids for home. She was issued about a 150 packs of nectar thickened packets for home use. She was instructed to put 4 ounces of liquid per 1 packet or if she has a honey packet to place 1 packet per 8 ounces of fluid. Patient was also issued a PDF of 2 different types of ways to make mechanical soft type foods, foods she that needs to prepare and foods that needs to avoid to follow the mechanical soft diet at home. Patient was given written directions for the amount of fluid written directions for her oral motor exercises which included opening and squeezing lips shut. Pucker lateralization and also she was instructed in effortful swallows to complete 10 swallows per 10 bites of food per meal or 10 swallows per liquid. Patient was instructed in swallowing pills in a puree. OT did speak to her son who is in [place] and he was in agreeance with this plan. Dr. Marcus was also present during some of the session and he agrees. A: Patient is doing well she has about 75% of her oral motor and will continue as an outpatient patient. P: Continue seeing patient BID during the week and one time per day over the weekend for transfers, ambulation, and range of motion/strengthening exercises. ILSAD
== END 2018-06-13 14:32 | disposition home or self-care (01) | DRG 66 ==
LOC: ER 09:40 → MED/SURG 12:09
PROVIDERS: ADMIT Family Medicine; ATTEND Family Medicine